=== PATIENT | male | born 1955 | race African-American/Black ===

== ENCOUNTER 2021-09-22 05:34 | Day surgery (SDC) | payer MEDICARE ==
[2021-09-18 14:23] VITALS: BMI 35.4
[2021-09-22] MEDS ORDERED: Fentanyl 250 MCG/5 ML VIAL ONE (06:43)
[2021-09-22] MEDS ORDERED: Levofloxacin 500 mg/D5W 100 ml Premix Bag ONE (07:23)
[2021-09-22] MEDS ORDERED: Ketorolac Tromethamine 30 MG/ML VIAL ONE ×2 (07:28→08:16)
[2021-09-22] MEDS ORDERED: PHENYLEPHRINE-NS 100 MCG/ML 10 ML SYRINGE ONE (07:28)
[2021-09-22] MEDS ORDERED: Lidocaine 1% PF 5 ML VIAL ONE (07:28)
[2021-09-22] MEDS ORDERED: Dexamethasone 20 MG/5 ML VIAL ONE (07:28)
[2021-09-22] MEDS ORDERED: PROPOFOL 200 MG/20 ML VIAL ONE (07:28)
[2021-09-22] MEDS ORDERED: Ondansetron PF 4 MG/2 ML Vial ONE (07:28)
[2021-09-22] MEDS ORDERED: Oxybutynin 5 MG TAB ONE (08:17)
[2021-09-22] MEDS ORDERED: Phenazopyridine HCl 100 MG TAB ONE (08:17)
== END 2021-09-22 11:45 | disposition home or self-care (01) ==
LOC: SDC 05:34
PROVIDERS: ATTEND Urology
PROC: 0T7D8DZ Dilation of Urethra with Intraluminal Device, Via Natural or Artificial Opening Endoscopic (ICD-10-PCS; principal; 2021-09-22)
DX: N40.1 Benign prostatic hyperplasia with lower urinary tract symptoms (principal); N13.8 Other obstructive and reflux uropathy; R35.0 Frequency of micturition; R35.1 Nocturia; R39.12 Poor urinary stream; R39.15 Urgency of urination; N52.01 Erectile dysfunction due to arterial insufficiency; E78.5 Hyperlipidemia, unspecified; I25.10 Atherosclerotic heart disease of native coronary artery without angina pectoris; I25.2 Old myocardial infarction; I11.0 Hypertensive heart disease with heart failure; I50.9 Heart failure, unspecified; G47.30 Sleep apnea, unspecified; E66.9 Obesity, unspecified; Z68.35 Body mass index [BMI] 35.0-35.9, adult; Z79.02 Long term (current) use of antithrombotics/antiplatelets; Z79.82 Long term (current) use of aspirin; Z79.84 Long term (current) use of oral hypoglycemic drugs; Z79.899 Other long term (current) drug therapy; Z95.5 Presence of coronary angioplasty implant and graft
CPT/HCPCS: J1885; J1956; J3010; L8699

== ENCOUNTER 2025-07-09 08:20 | Outpatient (CLI) | payer OTHER ==
[2025-07-09 09:39] LABS: Estimated GFR - POC 80.0
== END 2025-07-09 08:21 | disposition home or self-care (01) ==
LOC: SCSMRI 08:20
PROVIDERS: ATTEND Radiology Radiation Oncology
DX: C61 Malignant neoplasm of prostate (principal); Z90.79 Acquired absence of other genital organ(s)
CPT/HCPCS: 36415; 72197; 82565